=== PATIENT | female | born 1950 | race Caucasian/White ===

== ENCOUNTER → 2020-04-21 09:58 | Outpatient (BNVA) | payer MEDICARE, BC, SELFPAY | PROVIDERS: Family Provider Nurse Practitioner Family; PCP Nurse Practitioner Family; Referring Provider Dermatology; Visit Provider Dermatology | DX: L24.9 Irritant contact dermatitis, unspecified cause (principal); L57.8 Other skin changes due to chronic exposure to nonionizing radiation; L57.0 Actinic keratosis; D22.9 Melanocytic nevi, unspecified; L73.8 Other specified follicular disorders | CPT/HCPCS: 17000; 99203 ==

== ENCOUNTER 2021-10-27 12:01 | Outpatient (CLI) | payer MEDICARE, BC, SELFPAY ==
--- NOTE | 2021-10-27 12:42 | ECG_ITS ---
[facility] Test Date: 2021-10-27 Pat Name: Chayo Guzman Department: Room: Gender: Female Manager [employer]: : 1950 Requested By: Ty Nicole Order Number: [id number] Cesar MD: Preston Tadeo M.D. Measurements Intervals [place] Rate: 81 P: 14 HI: 199 QRS: -14 QRSD: 83 T: -10 QT: 345 QTc: 402 Interpretive Statements SINUS RHYTHM LOW QRS VOLTAGE IN PRECORDIAL LEADS [QRS DEFLECTION < 1.0 mV IN CHEST LEADS] MINIMAL VOLTAGE CRITERIA FOR LVH, CONSIDER NORMAL VARIANT [MEETS CRITERIA IN ONE OF: R(aVL), S(V1), R(V5), R(V5/V6)+S(V1)] POSSIBLE ANTERIOR MYOCARDIAL INFARCTION , PROBABLY OLD [30 ms Q WAVE IN V3/V4, OR R < 0.2 mV IN V4] No previous ECG available for comparison Electronically Signed On 10-27-2021 17:50:16 CDT by Preston Tadeo M.D. [email or web address] [email or web address] [email or web address]/store/[id number]
== END 2021-10-27 12:02 | disposition home or self-care (01) ==
PROVIDERS: PCP Family Medicine; Visit Provider Specialist
DX: D38.0 Neoplasm of uncertain behavior of larynx (principal); R49.0 Dysphonia
CPT/HCPCS: 93005